=== PATIENT | female | born 1995 | race Two or more races ===

== ENCOUNTER 2022-04-19 03:31 | Emergency (ER) | payer OTHER ==
[~2022-04-19] VITALS: Ht 170.2 cm; Wt 73.0 kg
[2022-04-19] MEDS ORDERED: TUSSIN DM SYRU118 ML PO (08:16)
[2022-04-19] MEDS ORDERED: OSEL75CA PO (08:16)
== END 2022-04-19 08:58 | disposition home or self-care (01) ==
LOC: ER 03:31
DX: J10.1 Influenza due to other identified influenza virus with other respiratory manifestations (principal); R50.9 Fever, unspecified

== ENCOUNTER 2024-02-13 11:48 | Emergency (ER) | payer OTHER ==
[~2024-02-13] VITALS: Ht 170.2 cm; Wt 73.0 kg
[~2024-02-13 11:48] MED LIST: OSEL75CA PO; TUSSIN DM SYRU118 ML PO
[2024-02-13] MEDS ORDERED: KETOROLAC TROMETHAMINE 60 MG VIAL IM ONE (13:15)
[2024-02-13] MEDS ORDERED: ORPHENADRINE CITRATE 30 MG/ML AMPUL IM ONE (13:15)
[2024-02-13] MEDS ORDERED: DICLOFENAC SODI75 MG PO (13:36)
== END 2024-02-13 14:11 | disposition home or self-care (01) ==
LOC: ER 11:50
DX: M54.9 Dorsalgia, unspecified (principal)